=== PATIENT | male | born 1955 | race Caucasian/White ===

== ENCOUNTER 2024-05-26 18:43 | Emergency (ER) | payer OTHER ==
[2024-05-26] MEDS ORDERED: Ondansetron PF 4 MG/2 ML Vial ONE (21:34)
[2024-05-26] MEDS ORDERED: Morphine 4 MG/ML VIAL ONE (21:34)
== END 2024-05-26 23:25 | disposition short-term general hospital (02) ==
LOC: NAV ERS 18:43
DX: S22.039A Unspecified fracture of third thoracic vertebra, initial encounter for closed fracture (principal); S22.029A Unspecified fracture of second thoracic vertebra, initial encounter for closed fracture; I12.9 Hypertensive chronic kidney disease with stage 1 through stage 4 chronic kidney disease, or unspecified chronic kidney disease; N18.9 Chronic kidney disease, unspecified; E78.5 Hyperlipidemia, unspecified; I25.2 Old myocardial infarction; Z79.82 Long term (current) use of aspirin; Z79.899 Other long term (current) drug therapy; Z86.73 Personal history of transient ischemic attack (TIA), and cerebral infarction without residual deficits; W01.10XA Fall on same level from slipping, tripping and stumbling with subsequent striking against unspecified object, initial encounter
CPT/HCPCS: 70450; 72125; 72128; 72131; 96374; 96375; J2272; J2405

== ENCOUNTER 2024-06-07 00:56 | Emergency (ER) | payer OTHER ==
[2024-06-07] MEDS ORDERED: Oxymetazoline HCl 0.05% (30 ML BOT) ONE (01:17)
[2024-06-07] MEDS ORDERED: Lisinopril 20 MG TAB ONE (01:17)
[2024-06-07] MEDS ORDERED: Ondansetron PF 4 MG/2 ML Vial ONE (01:21)
[2024-06-07] MEDS ORDERED: Spironolactone 25 MG TAB PO SCH (01:30)
[2024-06-07 01:33] LABS: #Basophils 0.1 thou/uL (0.0-0.2); #Eosinophils 0.5 thou/uL (0.0-0.7); #Lymphocytes 1.3 thou/uL (1.20-3.40); #Monocytes 0.6 thou/uL (0.11-0.59); #Neutrophils 3.8 thou/uL (1.40-6.50); %Basophils 1.1 % (0.0-1.0); %Eosinophils 8.5 % (0.0-10.0); %Lymphocytes 20.6 % (21.0-51.0); %Monocytes 9.3 % (0.0-10.0); %Neutrophils 60.5 % (42.0-75.0); Hematocrit 25.1 % (42.0-52.0); Hemoglobin 7.9 g/dL (14.0-18.0); Mean Corpuscular HGB CONC 31.2 g/dL (32.0-36.0); Mean Corpuscular Hemoglobin 28.3 pg (27.0-31.0); Mean Corpuscular Volume 90.7 fl (78.0-98.0); Mean Platelet Volume 6.8 fL (7.4-10.4); Platelet Count 364 10x3/uL (130-400); RBC Distribution Width 12.5 % (11.5-14.5); Red Blood Cell (RBC) Count 2.77 mill/uL (4.70-6.10); White Blood Cell (WBC) Count 6.4 10x3/uL (4.8-10.8)
[2024-06-07 01:51] LABS: ALT (SGPT) 16 U/L (8-55); AST (SGOT) 13 U/L (5-34); Albumin 3.4 g/dL (3.4-4.8); Alkaline Phosphatase 113 U/L (40-110); Anion Gap 15 mmol/L (10-20); BUN (Urea Nitrogen) 36 mg/dL (8.4-25.7); Bilirubin, Total 0.2 mg/dL (0.2-1.2); Calc. Creatinine Clearance 0 mL/min (70-130); Calcium 9.1 mg/dL (7.8-10.44); Carbon Dioxide 25 mmol/L (23-31); Chloride 105 mmol/L (98-107); Estimated GFR 74; Globulin 3.8 g/dL (2.4-3.5); Glucose 88 mg/dL (80-115); INR-International Normal Ratio 1.4; Potassium 3.8 mmol/L (3.5-5.1); Protein, Total 7.2 g/dL (5.8-8.1); Prothrombin Time 17.4 sec (12.0-14.7); Sodium 141 mmol/L (136-145)
[2024-06-07 01:52] LABS: PTT 42.8 sec (22.9-36.1)
[2024-06-07] MEDS ORDERED: cloNIDine 0.1 MG TAB ONE (02:00)
== END 2024-06-07 03:30 ==
LOC: NAV ERS 00:56 → EEVIPCON 00:56 → NAV ERS 03:30
DX: R04.0 Epistaxis (principal); I25.2 Old myocardial infarction; E78.5 Hyperlipidemia, unspecified; I12.9 Hypertensive chronic kidney disease with stage 1 through stage 4 chronic kidney disease, or unspecified chronic kidney disease; N18.9 Chronic kidney disease, unspecified; Z79.82 Long term (current) use of aspirin; Z79.899 Other long term (current) drug therapy
CPT/HCPCS: 30901; 80053; 85025; 85610; 85730; 96374; J2405